=== PATIENT | female | born 1990 | race African-American/Black ===

== ENCOUNTER 2018-02-08 08:44 | Emergency (ER) | payer OTHER ==
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
[2018-02-08] MEDS ORDERED: Adacel (T-DAP) 0.5 ML VIAL ONE (09:50)
[2018-02-08] MEDS ORDERED: HYDROcodone/Acetaminophen 7.5/325 mg Tablet ONE (09:50)
== END 2018-02-08 10:15 | disposition home or self-care (01) ==
LOC: ERS 08:44
DX: S13.4XXA Sprain of ligaments of cervical spine, initial encounter (principal); S60.812A Abrasion of left wrist, initial encounter; Z23 Encounter for immunization; V54.5XXA Driver of pick-up truck or van injured in collision with heavy transport vehicle or bus in traffic accident, initial encounter
CPT/HCPCS: 72125; 90471; 90715

== ENCOUNTER 2018-08-18 18:39 | Emergency (ER) | payer BC, OTHER ==
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
== END 2018-08-18 19:34 | disposition home or self-care (01) ==
LOC: SCSER 18:39
DX: J20.9 Acute bronchitis, unspecified (principal)
CPT/HCPCS: 71046